=== PATIENT | male | born 1975 | race Caucasian/White ===

== ENCOUNTER 2018-04-03 13:47 | Outpatient (RCR) | payer BC | END 2018-04-24 | disposition home or self-care (01) | LOC: PTY 13:47 | DX: M25.562 Pain in left knee (principal); G89.29 Other chronic pain ==

== ENCOUNTER 2018-05-08 14:30 | Outpatient (RCR) | payer BC | END 2018-05-25 | disposition home or self-care (01) | LOC: PTY 14:30 | DX: M25.562 Pain in left knee (principal); G89.29 Other chronic pain ==